=== PATIENT | female | born 2000 | race African-American/Black ===

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

== ENCOUNTER 2020-10-18 19:31 | Emergency (ER) | payer MEDICAID, OTHER ==
[2020-10-18 20:24] LABS: BILIRUBIN,URINE NEGATIVE (NEGATIVE); GLUCOSE, URINE (UA) NEGATIVE (NEGATIVE); KETONES,URINE (UA) NEGATIVE (NEGATIVE); LEUKOCYTE ESTERASE, URINE TRACE (NEGATIVE); NITRITE,URINE NEGATIVE (NEGATIVE); OCCULT BLOOD,URINE NEGATIVE (NEGATIVE); PROTEIN,URINE NEGATIVE (NEGATIVE); UROBILINOGEN,URINE 0.2 (NORMAL) E.U./dL (NORMAL)
[2020-10-18 20:35] LABS: CLARITY,URINE HAZY (CLEAR)
[2020-10-18 20:50] LABS: BASOPHILS % (AUTO) 0.2 %; EOSINOPHILS # (AUTO) 0.1 10^3/uL (0.0-0.7); EOSINOPHILS % (AUTO) 0.6 %; HCT - HEMATOCRIT 38.5 % (37.0-47.0); HGB - HEMOGLOBIN 12.9 g/dL (12.0-16.0); LYMPHOCYTES # (AUTO) 2.1 10^3/uL (1.5-3.5); LYMPHOCYTES % (AUTO) 18.9 %; MEAN CORPUSCULAR HEMOGLOBIN 31.1 pg (27.0-31.0); MEAN CORPUSCULAR HGB CONC 33.5 g/dL (32.0-36.0); MEAN CORPUSCULAR VOLUME 92.8 fL (81.0-99.0); MEAN PLATELET VOLUME 10.7 fL (7.9-10.8); MONOCYTES # (AUTO) 0.7 10^3/uL (0.0-1.0); MONOCYTES % (AUTO) 6.2 %; NEUTROPHILS % (AUTO) 73.7 %; PLT - PLATELET COUNT 264 10^3/uL (130-450); RED BLOOD COUNT 4.15 10^6/uL (4.20-5.40); WHITE BLOOD COUNT 10.8 x10^3/uL (4.8-10.8)
[2020-10-18 20:52] LABS: BACTERIA,URINE Rare /HPF (None Seen); RBC,URINE None Seen /HPF (0-5); SQUAMOUS EPITHELIAL CELL,UR FEW Squamous (<= Few); WBC,URINE 0-3 /HPF (0-5)
[2020-10-18 21:05] LABS: ALBUMIN 4.4 g/dL (3.2-5.5); ALBUMIN/GLOBULIN RATIO 1.2 (1.0-2.2); BILIRUBIN,TOTAL 0.9 mg/dL (0.2-1.0); CREATININE 0.7 mg/dL (0.4-1.0); POTASSIUM 3.6 mmol/L (3.5-5.0)
--- NOTE | 2020-10-18 21:25 | ED Physician Documentation ---
PD HPI ABD PAIN - Stated complaint Stated Complaint: - Chief complaint Chief Complaint: Abd Pain - History obtained from History obtained from: Patient - History of Present Illness Timing - onset: Yesterday (onset last evening and persisted into today of RUQ pain, worse with movement and deep breathing, but is in the RUQ. Less appetite and nausea, no vomiting. No prior similar.) Timing - duration: Days (1) Timing - details: Abrupt onset, Still present, Waxing and waning Quality: Cramping, Aching, Pain Location: RUQ Radiation: Right shoulder, Upper back Improved by: Laying still Worsened by: Eating, Moving, Breathing, Palpation Associated symptoms: Nausea, Loss of appetite. No: Fever, Vomiting, Diarrhea, Constipation, Dysuria Similar symptoms before: Has not had sx before Review of Systems Constitutional: denies: Fever, Chills Nose: denies: Rhinorrhea / runny nose, Congestion Throat: denies: Sore throat Respiratory: denies: Cough GI: reports: Abdominal Pain, Nausea. denies: Abdominal Swelling, Vomiting, Constipation, Diarrhea, Bloody / black stool : denies: Dysuria, Frequency Skin: denies: Rash PD PAST MEDICAL HISTORY - Past Medical History Past Medical History: No - Past Surgical History Past Surgical History: No - Present Medications Home Medications: Ambulatory Orders Medication Instructions Recorded Confirmed Ondansetron Odt [Zofran] 4 mg TL Q6H PRN #10 tablet 10/19/20 Oxycodone HCl/Acetaminophen 1 each PO Q6H PRN #14 tablet 10/19/20 [Percocet 5-325 mg Tablet] - Allergies Allergies/Adverse Reactions: Allergies Allergy/AdvReac Type Severity Reaction Status Date / Time hydrocodone AdvReac Anxiety Verified 10/18/20 20:15 - Social History Does the pt smoke?: No Smoking Status: Never smoker Does the pt drink ETOH?: No Does the pt have substance abuse?: No - Immunizations Immunizations are current?: Yes - POLST Patient has POLST: No PD ED PE NORMAL - Vitals Vital signs reviewed: Yes - General General: Alert and oriented X 3, No acute distress, Well developed/nourished - HEENT HEENT: Pharynx benign - Neck Neck: Supple, no meningeal sign, No adenopathy - Cardiac Cardiac: RRR, No murmur - Respiratory Respiratory: Clear bilaterally - Abdomen Abdomen: Normal bowel sounds, Non distended, No organomegaly, Other (tender RUQ with local guarding. Not tender on lower chestwall. No rash nor redness. No back tenderness. ) - Female Female : Deferred - Rectal Rectal: Deferred - Back Back: No CVA TTP - Derm Derm: Normal color, Warm and dry, No rash - Neuro Neuro: Alert and oriented X 3, No motor deficit, Normal speech Results - Vitals Vitals: Vital Signs - 24 hr 10/18/20 10/18/20 10/19/20 20:05 22:28 00:01 Temperature 36.8 C 36.9 C 36.9 C Heart Rate 103 H 97 87 Respiratory 18 18 16 Rate Blood Pressure 137/87 H 114/68 124/70 O2 Saturation 100 100 100 Oxygen O2 Source Room air - Labs Labs: Laboratory Tests 10/18/20 10/18/20 10/18/20 20:18 20:43 20:43 WBC 10.8 RBC 4.15 L Hgb 12.9 Hct 38.5 MCV 92.8 MCH 31.1 H MCHC 33.5 RDW 12.0 Plt Count 264 MPV 10.7 Neut # (Auto) 8.0 H Lymph # (Auto) 2.1 Thayer # (Auto) 0.7 Eos # (Auto) 0.1 Baso # (Auto) 0.0 Absolute Nucleated RBC 0.00 Nucleated RBC % 0.0 Sodium 139 Potassium 3.6 Chloride 104 Carbon Dioxide 24 Anion Gap 11.0 BUN 11 Creatinine 0.7 Estimated GFR (MDRD) 128 Glucose 100 Calcium 9.0 Total Bilirubin 0.9 AST 16 ALT 15 Alkaline Phosphatase 58 Total Protein 8.0 Albumin 4.4 Globulin 3.6 Albumin/Globulin Ratio 1.2 Lipase 23 Urine Color YELLOW Urine Clarity HAZY Urine pH 6.0 Ur Specific [place] 1.010 Urine Protein NEGATIVE Urine Glucose (UA) NEGATIVE Urine Ketones NEGATIVE Urine Occult Blood NEGATIVE Urine Nitrite NEGATIVE Urine Bilirubin NEGATIVE Urine Urobilinogen 0.2 (NORMAL) Ur Leukocyte Esterase TRACE H Urine RBC None Seen Urine WBC 0-3 Ur Squamous Epith Cells FEW Squamous Urine Bacteria Rare Ur Microscopic Review INDICATED Urine Culture Comments INDICATED - Rads (name of study) abd U/S Radiology: Prelim report reviewed (no acute process normal GB), See rad report chest xray Radiology: Prelim report reviewed (no acute process), See rad report PD MEDICAL DECISION MAKING - ED course Complexity details: reviewed results (nbo signs of GB process. Could be colic as clinically seemed GB colic. Also consider duodenal process. ), considered differential, d/w patient Departure - Departure Disposition: 01 Home, Self Care Clinical Impression: Right upper quadrant abdominal pain Condition: Stable Record reviewed to determine appropriate education?: Yes Instructions: ED Abdominal Pain Unkn Cause Follow-Up: Katie Jason MD [Primary Care Provider] - Prescriptions: Oxycodone HCl/Acetaminophen [Percocet 5-325 mg Tablet] 1 each PO Q6H PRN #14 tablet PRN Reason: pain Ondansetron Odt [Zofran] 4 mg TL Q6H PRN #10 tablet PRN Reason: Nausea / Vomiting Comments: Are normal without any signs of obvious inflammation or infection of your gallbladder pancreas or liver. Unclear the cause of the pain at this time. Consideration would be some gallbladder spasm without any signs of stones. Alternatively part of the intestine run to the area and there may be some inflammation of the duodenum. Other possibilities as well, of course, but these 2 most likely. Both of these likely would improve over the next day or 2 with some medications and bland food. Ondansetron if needed for nausea. Add Tylenol or oxycodone if needed for pain. Clear liquids to bland food only for the next day. Recheck if not improving well over the next 1 to 2 days and resolved within 2 to 3 days. Return if worsening. Discharge Date/Time: 10/19/20 01:06
[2020-10-18] MEDS ORDERED: HYDROmorphone 1 MG/ML CARPUJECT IVP STA (21:42)
[2020-10-18] MEDS ORDERED: SODIUM CHLORIDE 0.9% 1,000 ML IV STA (21:42)
[2020-10-18] MEDS ORDERED: ONDANSETRON 4 MG/2 ML VIAL IVP STA (21:42)
[2020-10-18] MEDS ORDERED: KETOROLAC 15 MG/ML VIAL IVP STA (21:42)
[2020-10-19 00:02] VITALS: BP 124/70
[2020-10-19] MEDS ORDERED: oxyCODONE/ACET 5/325 Prepack 4 PO STA (00:02)
[2020-10-19] MEDS ORDERED: ONDANSETRON ODT 4 MG Prepack 2 TL PRN (00:02)
--- NOTE | 2020-10-19 08:24 | XRAY Report ---
PROCEDURE: Chest 1 View X-Ray INDICATIONS: right chest/RUQ abd pain to right shoulder TECHNIQUE: One view of the chest was acquired. COMPARISON: None. FINDINGS: Surgical changes and devices: None. Lungs and pleura: No pleural effusions or pneumothorax. Lungs are clear. Mediastinum: Mediastinal contours appear normal. Heart size is normal. Bones and chest wall: No suspicious bony lesions. Overlying soft tissues appear unremarkable. IMPRESSION: 1. No acute cardiopulmonary disease. Reviewed by: Zaid Cosme MD on 10/19/2020 8:22 AM [facility] Approved by: Zaid Cosme MD on 10/19/2020 8:22 AM [facility] Station ID: [id number]
--- NOTE | 2020-10-19 09:03 | Ultrasound Report ---
PROCEDURE: Abdomen Limited INDICATIONS: ruq pain TECHNIQUE: Real-time focused scanning was performed of the right upper quadrant, with image documentation. COMPARISON: None. FINDINGS: Liver is normal in size with slightly increased echogenicity suggestive of mild fatty infiltration. N o discrete focal hepatic lesion identified. The gallbladder demonstrates no gallstones, wall thickening, or pericholecystic fluid. No intra or extrahepatic biliary ductal dilatation. The visualized common bile duct measures up to 3 mm. The pancreas was not visualized sonographically due to bowel gas. Right kidney measures 9.2 cm in length. There is mild pelvocaliectasis. IMPRESSION: 1. No evidence of cholelithiasis or cholecystitis. 2. Mild nonspecific pelvocaliectasis of the right renal collecting system. Reviewed by: Zaid Cosme MD on 10/19/2020 9:02 AM PST Approved by: Zaid Cosme MD on 10/19/2020 9:02 AM PST Station ID: [id number]
--- OUTSIDE RECORDS SUMMARY | 2020-10-25 00:54 | EXTERNAL MEDICAL SUMMARY RPT | Continuity of Care Document ---
:2000 Demographics Phone Unavailable Preferred Language Unknown Marital Status Unknown Buddhist Affiliation Unknown Race Unknown Ethnic Group Unknown Author Organization [facility] Address [address] [phone] Phone Care Team Providers Name Role Phone Eren Unavailable Unavailable Problems date description facility 2020-10-18 19:31 RIGHT UPPER QUADRANT PAIN [facility] 2020-10-18 19:31 NAUSEA [facility] Allergies date description facility NO KNOWN ALLERGIES [facility] OXYCODONE-ACETAMINOPHEN [facility] NO KNOWN ALLERGIES [facility] CLARITHROMYCIN [facility] hydrocodone [facility] Results Social History date description facility [id number]
== END 2020-10-19 01:06 | disposition home or self-care (01) ==
LOC: ED 19:31
DX: R10.11 Right upper quadrant pain (principal); R11.0 Nausea
CPT/HCPCS: 36415; 71045; 76705; 80053; 81001; 83690; 85025; 87086; 96374; 96375; 99284; J1170; 81003